=== PATIENT | female | born 1995 | race Hispanic/Latino ===

== ENCOUNTER 2017-06-06 08:50 | Outpatient (CLI) | payer OTHER | END 2017-06-06 08:51 | disposition home or self-care (01) | LOC: BICULT 08:50 | PROVIDERS: ATTEND Student in an Organized Health Care Education/Training Program | DX: N63.10 Unspecified lump in the right breast, unspecified quadrant (principal) ==

== ENCOUNTER 2017-12-08 07:57 | Outpatient (CLI) | payer OTHER | END 2017-12-08 07:58 | disposition home or self-care (01) | LOC: BICULT 07:57 | PROVIDERS: ATTEND Student in an Organized Health Care Education/Training Program | DX: N63.10 Unspecified lump in the right breast, unspecified quadrant (principal) ==

== ENCOUNTER 2017-12-19 00:10 | Emergency (ER) | payer OTHER ==
[2017-12-19 00:38] LABS: #Eosinphils 0.1 thou/uL (0.0-0.7); #Lymphocytes 0.6 thou/uL (1.20-3.40); #Monocytes 0.5 thou/uL (0.11-0.59); %Basophils 0.4 % (0.0-1.0); %Eosinophils 1.1 % (0.0-10.0); %Lymphocytes 5.6 % (21.0-51.0); %Monocytes 4.5 % (0.0-10.0); %Neutrophils 88.5 % (42.0-75.0); Hemoglobin 14.2 g/dL (12.0-16.0); Mean Corpuscular HGB CONC 34.9 g/dL (32.0-36.0); Mean Corpuscular Hemoglobin 29.8 pg (27.0-31.0); Mean Corpuscular Volume 85.4 fL (78.0-98.0); Mean Platelet Volume 6.8 fL (7.4-10.4); Platelet Count 261 thou/uL (130-400); RBC Distribution Width 11.4 % (11.5-14.5); Red Blood Cell (RBC) Count 4.76 mill/uL (4.20-5.40); White Blood Cell (WBC) Count 10.1 thou/uL (4.8-10.8)
[2017-12-19 00:40] LABS: Bilirubin Negative (Negative); Blood, Urine Small (Negative); Clarity CLEAR (Clear); Glucose, Urine (Dipstick) Negative (Negative); Leukocyte Negative (Negative); Nitrite Negative (Negative); Protein, Urine (Dipstick) Negative (Neg-Trace); Specific Gravity, Urine 1.026 (1.002-1.036); Urobilinogen 0.2 mg/dL (0.2-1.0); pH, Urine 5.5 (5.0-9.0)
[2017-12-19 00:41] LABS: Pregnancy Test - Urine (BHCG) Negative (Negative); Pregu Control Background? CLEAR/WHITE (CLR/WHITE); Pregu Control Bar Appear? YES (CONTROL BAR); Specific Gravity 1.026 (1.002-1.036)
[2017-12-19 00:42] LABS: Bacteria/HPF None Seen HPF (None Seen); Hyaline Casts/LPF 0-3 HYALINE CAST LPF (0-3 Hyaline); Pathc Cast-AUWi Flag 0.87 (0-2.49); Squamous Epithelial 0-3 HPF (0-3); WBC/HPF 0-3 HPF (0-3)
[2017-12-19 00:55] LABS: ALT (SGPT) 16 U/L (8-55); AST (SGOT) 18 U/L (5-34); Albumin 4.5 g/dL (3.5-5.0); Alkaline Phosphatase 71 U/L (40-150); Anion Gap 12 mmol/L (10-20); BUN (Urea Nitrogen) 10 mg/dL (7.0-18.7); Bilirubin, Total 0.6 mg/dL (0.2-1.2); Calc. Creatinine Clearance 0 mL/min (70-130); Calcium 9.4 mg/dL (7.8-10.44); Carbon Dioxide 25 mmol/L (22-29); Chloride 105 mmol/L (98-107); Estimated GFR-MDRD Greater than 90; Globulin 3.2 g/dL (2.4-3.5); Glucose 115 mg/dL (70-105); Lipase 19 U/L (8-78); Potassium 4.1 mmol/L (3.5-5.1); Protein, Total 7.7 g/dL (6.0-8.3); Sodium 138 mmol/L (136-145)
[2017-12-19] MEDS ORDERED: Ondansetron ODT 4 MG TAB ONE (01:00)
[2017-12-19] MEDS ORDERED: Ketorolac Tromethamine 30 MG/ML VIAL ONE (02:47)
[2017-12-19] MEDS ORDERED: Famotidine/PF 20 mg/2ml Vial ONE (02:47)
--- NOTE | 2017-12-20 13:07 | EKG ---
Test Reason : Blood Pressure : / mmHG Vent. Rate : 110 BPM Atrial Rate : 110 BPM P-R Int : 114 ms QRS Dur : 100 ms QT Int : 346 ms P-R-T Axes : 053 086 043 degrees QTc Int : 468 ms Sinus tachycardia Incomplete right bundle branch block Cannot rule out Anterior infarct , age undetermined Abnormal ECG Confirmed by FLOR OWENS DO ([id number]), assistant film editor GANESH LEDESMA ([id number]) on 12/20/2017 1:07:19 PM Referred By: Confirmed By:FLOR OWENS DO
== END 2017-12-19 04:57 | disposition home or self-care (01) ==
LOC: ERS 00:10
DX: R10.13 Epigastric pain (principal); F41.9 Anxiety disorder, unspecified
CPT/HCPCS: 36415; 80053; 81003; 81015; 81025; 83690; 85025; 93005; 96361; 96374; 96375; J1885; Q0162; S0028

== ENCOUNTER 2018-05-18 09:49 | Day surgery (SDC) | payer OTHER ==
[2018-05-18] MEDS ORDERED: Iopamidol 370 76% 100 ML VIAL ONE (10:09)
[2018-05-18 10:29] LABS: #Basophils 0.1 thou/uL (0.0-0.2); #Eosinphils 0.2 thou/uL (0.0-0.7); #Lymphocytes 1.2 thou/uL (1.20-3.40); #Monocytes 0.8 thou/uL (0.11-0.59); #Neutrophils 8.4 thou/uL (1.40-6.50); %Basophils 0.8 % (0.0-1.0); %Eosinophils 1.5 % (0.0-10.0); %Lymphocytes 11.2 % (21.0-51.0); %Monocytes 7.5 % (0.0-10.0); %Neutrophils 78.9 % (42.0-75.0); Hemoglobin 13.8 g/dL (12.0-16.0); Mean Corpuscular HGB CONC 32.3 g/dL (32.0-36.0); Mean Corpuscular Hemoglobin 27.7 pg (27.0-31.0); Mean Corpuscular Volume 85.6 fL (78.0-98.0); Mean Platelet Volume 8.2 fL (7.4-10.4); Platelet Count 271 thou/uL (130-400); RBC Distribution Width 11.7 % (11.5-14.5); Red Blood Cell (RBC) Count 4.97 mill/uL (4.20-5.40); White Blood Cell (WBC) Count 10.7 thou/uL (4.8-10.8)
[2018-05-18 10:32] LABS: BHCG - Serum Negative (NEGATIVE); Pregs Control Background? CLEAR/WHITE (CLR/WHITE); Pregs Control Bar Appear? YES (CONTROL BAR)
[2018-05-18 10:39] LABS: ALT (SGPT) 30 U/L (8-55); AST (SGOT) 28 U/L (5-34); Albumin 4.1 g/dL (3.5-5.0); Alkaline Phosphatase 75 U/L (40-150); Anion Gap 13 mmol/L (10-20); BUN (Urea Nitrogen) 11 mg/dL (7.0-18.7); Bilirubin, Total 0.4 mg/dL (0.2-1.2); Calc. Creatinine Clearance 0 mL/min (70-130); Calcium 9.1 mg/dL (7.8-10.44); Carbon Dioxide 25 mmol/L (22-29); Chloride 106 mmol/L (98-107); Estimated GFR-MDRD Greater than 90; Globulin 3.2 g/dL (2.4-3.5); Glucose 103 mg/dL (70-105); Lipase 16 U/L (8-78); Potassium 3.8 mmol/L (3.5-5.1); Protein, Total 7.3 g/dL (6.0-8.3); Sodium 140 mmol/L (136-145)
[2018-05-18] MEDS ORDERED: Ondansetron PF 4 MG/2 ML Vial ONE ×2 (11:01→11:36)
[2018-05-18] MEDS ORDERED: Morphine 4 MG/ML Carpuject ONE ×2 (11:01→13:04)
[2018-05-18 11:06] LABS: Bilirubin Negative (Negative); Blood, Urine Negative (Negative); Clarity Slightly Cloudy (Clear); Glucose, Urine (Dipstick) Negative (Negative); Leukocyte Negative (Negative); Nitrite Negative (Negative); Protein, Urine (Dipstick) Negative (Neg-Trace); Urobilinogen 0.2 mg/dL (0.2-1.0)
[2018-05-18] MEDS ORDERED: Ketorolac Tromethamine 30 MG/ML VIAL ONE (11:36)
[2018-05-18] MEDS ORDERED: Rocuronium Bromide 10 MG/ML (10ML VIAL) ONE (11:36)
[2018-05-18] MEDS ORDERED: Dexamethasone 20 MG/5 ML VIAL ONE (11:36)
[2018-05-18] MEDS ORDERED: PROPOFOL 200 MG/20 ML VIAL ONE (11:36)
[2018-05-18] MEDS ORDERED: Succinylcholine Chloride 20 MG/ML 10 ml SYRINGE FS ONE (11:36)
[2018-05-18] MEDS ORDERED: Glycopyrrolate 0.2 MG/ML 5 ML SYRINGE ONE (11:36)
[2018-05-18] MEDS ORDERED: Piperacillin/Tazobactam 4.5 GM VIAL ONE (13:59)
--- NOTE | 2018-05-18 14:11 | CT ---
CT ABDOMEN WITH CONTRAST CT PELVIS WITH CONTRAST: DATE: 05/18/2018 TIME: 1:00 p.m. HISTORY: A 22-year-old female with periumbilical and right lower quadrant abdominal pain. Dr. Mae notified Dr. Inocente Walters of the [facility] Emergency Department about the appendicitis at 1:47 p.m. on 05/18/2018. COMPARISON: 10/29/2011 TECHNIQUE: IV injection of iodinated contrast media: Isovue-370 Oral contrast media: Administered FINDINGS: There is a new finding of mural thickening and mural enhancement involving the appendix, with a fluid -filled lumen and periappendiceal fat stranding, representing mild edema. No focal periappendiceal o rganized fluid collection is visualized. There is a small amount of free fluid in the cul-de-sac, in a posterior, dependent portion of the pel sharonda cavity, which is probably physiologic in a female patient of menstruating age. Previous CT showe d a 2.2 cm left ovarian cyst, which is no longer present on the current study. The previously demons trated left-sided pyelonephritis is not present currently. Currently, the bilateral kidneys, abdomin al aorta, pancreas, liver, spleen, and urinary bladder are normal. No small bowel dilation. No sign s of colonic diverticulitis. IMPRESSION: Positive for acute appendicitis. CODE MIRZA JN R POS: [facility]
[2018-05-18] MEDS ORDERED: Piperacillin/Tazobactam 4.5 GM in Sodium Chloride 0.9% 100 ML IVPB SCH (14:15)
[2018-05-18] MEDS ORDERED: Fentanyl 100 MCG/2 ML VIAL ONE ×2 (17:46→18:14)
[2018-05-18] MEDS ORDERED: Ertapenem 1 GM in Sodium Chloride 0.9% 100 ML IVPB SCH (18:00)
[2018-05-18] MEDS ORDERED: Bupivacaine HCl 0.25%/Epi 0.0005/PF 10 ML VIAL FS ONE ×2 (18:05→18:06)
[2018-05-18] MEDS ORDERED: Promethazine HCl 25 MG/ML VIAL ONE (19:12)
[2018-05-18] MEDS ORDERED: Meperidine HCl/PF 25 MG/ML VIAL ONE (20:06)
[2018-05-18] MEDS ORDERED: HYDROcodone/Acetaminophen 5/325 mg Tablet ONE (21:45)
--- NOTE | 2018-05-19 01:25 | HP ---
CHIEF COMPLAINT: Abdominal pain. HISTORY OF PRESENT ILLNESS: Ms. Eddy is a 22-year-old woman who had onset of right lower quadrant abdominal pain last night around 10 or 11. She had some nausea and vomiting and thought it would get better, but it did not, so she came into the emergency room today and was diagnosed with appendicitis. She was transferred to [place] for further care. She denies any fevers, chills, or diarrhea. She has not had much of an appetite. The pain is made better by lying on her left side and is made worse by any sort of movement. PAST MEDICAL HISTORY: Pyelonephritis on the left. PAST SURGICAL HISTORY: None. ALLERGIES: SHE HAS AN ALLERGY TO SULFA, WHICH CAUSES HIVES. SHE HAD A REACTION TO AN ANTIBIOTIC OF SOME TYPE, WHICH CAUSED SOME SWELLING OF HER TONGUE AND LIPS, BUT SHE DOES NOT KNOW WHICH ANTIBIOTIC IT WAS AND SHE WAS ON 3 DIFFERENT ANTIBIOTICS AT THAT TIME FOR HER PYELONEPHRITIS. FAMILY HISTORY: Noncontributory. SOCIAL HISTORY: She does not smoke, drink, or use illicit drugs. 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 PHYSICAL EXAMINATION: VITAL SIGNS: The patient is afebrile with normal vital signs. GENERAL: Reveals a healthy-appearing young woman, in no acute distress. NECK: Supple without lymphadenopathy or thyroid nodules. HEART: Regular in its rate and rhythm without murmurs, rubs, or gallops. LUNGS: Clear to auscultation bilaterally. ABDOMEN: Soft and nondistended. She has tenderness to palpation in the right lower quadrant and referred pain to the right lower quadrant with palpation of the left lower quadrant. No palpable masses or hernias. EXTREMITIES: Warm and well perfused without edema. NEUROLOGIC: No focal deficits. PSYCHIATRIC: Alert, oriented, and appropriate. IMAGING DATA: CT images are reviewed and I agree with the written report. The patient has a dilated appendix consistent with acute appendicitis. No evidence of perforation however. LABORATORY DATA: White count is high normal at 10.7 with a left shift. Electrolytes and LFTs are unremarkable. Serum is negative and UA is clear. ASSESSMENT: Acute appendicitis. Recommended laparoscopic appendectomy for management. Benefits, risks, and alternatives were discussed. Inherent risks of surgery include, but are not limited to, bleeding, infection, risks of anesthesia, damage to nearby structures including bowel, blood vessels, and bladder, need for open surgery, and need for other procedures. The patient and her mother understand, accepted these risks and wished to proceed. All of their questions were answered. She received Zosyn in the emergency room. If there is no evidence of perforation, she will likely be able to be discharged home postoperatively. Job ID: [id number]
--- NOTE | 2018-05-21 13:11 | OP ---
DATE OF PROCEDURE: 05/18/2018 PROCEDURE: Laparoscopic appendectomy. PREOPERATIVE DIAGNOSIS: Appendicitis. POSTOPERATIVE DIAGNOSIS: Appendicitis. 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 HISTORY: Ms. Eddy is a 22-year-old woman who presented to the emergency room with signs and symptoms consistent with appendicitis. This was confirmed by CT. Recommendation was made to proceed with laparoscopic appendectomy. FINDINGS: Acute appendicitis without evidence of perforation. DESCRIPTION OF PROCEDURE: After informed consent was obtained and appropriate antibiotics continued, the patient was taken to the operating room and placed in the supine position and general endotracheal anesthesia was administered. The bladder was decompressed with a Mata catheter and the abdomen was prepped and draped in the standard sterile fashion. Local anesthesia was infused to the skin and subcutaneous tissues superior to the umbilicus. A transverse skin incision was made and a Veress needle placed into the abdominal cavity and carbon dioxide gas insufflated without difficulty. Opening pressure was less than 5. Carbon dioxide gas was insufflated to an intra-abdominal pressure 15 and the patient tolerated this well. The Veress needle was withdrawn and a [place] port advanced under direct laparoscopic vision into the abdominal cavity. Two additional ports were placed in the suprapubic and left lateral abdomen under direct laparoscopic vision after local anesthesia was infused at these sites. The appendix was identified and appeared inflamed but not perforated. The appendix was grasped by the mesoappendix and elevated. The mesoappendix was then sequentially ligated and divided down to the base of the appendix, which was normal in appearance and was clearly seen to be at the confluence of the tenia. Two Endoloops were placed around the base of the appendix and the appendix was divided between these Endoloops, placed into an EndoCatch bag and drawn out through the suprapubic incision. The suprapubic trocar was then replaced and the operative site was easily irrigated to clear. The suprapubic trocar was removed and the fascia closed under direct laparoscopic vision with a 0 Vicryl suture on a GraNee needle with excellent technical result. The left lateral trocar was then removed and hemostasis verified. Carbon dioxide gas was desufflated through the umbilical trocar which was then removed. The skin incisions were irrigated and additional local anesthesia infused at each site. The skin was closed with 4-0 subcuticular Monocryl sutures and Dermabond dressings were placed. The patient was extubated and taken to the recovery room in good condition. Estimated blood loss was minimal. There were no complications. SPECIMEN: Appendix. Job ID: [id number]
== END 2018-05-18 22:14 | disposition home or self-care (01) ==
LOC: SDC 09:49 → SCSER 14:29 → ERS 15:28 → SDC 22:14
PROVIDERS: ATTEND Surgery
PROC: 0DTJ4ZZ Resection of Appendix, Percutaneous Endoscopic Approach (ICD-10-PCS; principal; 2018-05-18)
DX: K35.80 Unspecified acute appendicitis (principal); Z88.2 Allergy status to sulfonamides; Z88.1 Allergy status to other antibiotic agents
CPT/HCPCS: 74177; 80053; 81003; 83690; 84703; 85025; 88304; J1100; J1335; J1885; J2175; J2270; J2405; J2543; J2550; J2704; J3010; J7050; Q9967

== ENCOUNTER 2018-06-27 23:34 | Emergency (ER) | payer OTHER ==
[2018-06-27] MEDS ORDERED: Ibuprofen 800 MG TAB ONE (23:51)
[2018-06-28 00:17] LABS: #Lymphocytes 0.4 thou/uL (1.20-3.40); #Monocytes 0.5 thou/uL (0.11-0.59); #Neutrophils 5.6 thou/uL (1.40-6.50); %Basophils 0.5 % (0.0-1.0); %Eosinophils 0.7 % (0.0-10.0); %Lymphocytes 6.2 % (21.0-51.0); %Monocytes 7.7 % (0.0-10.0); %Neutrophils 84.9 % (42.0-75.0); Hemoglobin 13.3 g/dL (12.0-16.0); Mean Corpuscular HGB CONC 33.2 g/dL (32.0-36.0); Mean Corpuscular Hemoglobin 29.1 pg (27.0-31.0); Mean Corpuscular Volume 87.7 fL (78.0-98.0); Mean Platelet Volume 7.4 fL (7.4-10.4); Platelet Count 211 thou/uL (130-400); RBC Distribution Width 11.1 % (11.5-14.5); Red Blood Cell (RBC) Count 4.58 mill/uL (4.20-5.40); White Blood Cell (WBC) Count 6.6 thou/uL (4.8-10.8)
[2018-06-28 00:37] LABS: ALT (SGPT) 14 U/L (8-55); AST (SGOT) 17 U/L (5-34); Albumin 4.6 g/dL (3.5-5.0); Alkaline Phosphatase 85 U/L (40-150); Anion Gap 15 mmol/L (10-20); BUN (Urea Nitrogen) 11 mg/dL (7.0-18.7); Bilirubin, Total 0.7 mg/dL (0.2-1.2); Calc. Creatinine Clearance 0 mL/min (70-130); Calcium 9.5 mg/dL (7.8-10.44); Carbon Dioxide 22 mmol/L (22-29); Chloride 102 mmol/L (98-107); Estimated GFR-MDRD 86; Glucose 96 mg/dL (70-105); Potassium 3.8 mmol/L (3.5-5.1); Protein, Total 7.6 g/dL (6.0-8.3); Sodium 135 mmol/L (136-145)
[2018-06-28 01:12] LABS: Bilirubin Negative (Negative); Blood, Urine Negative (Negative); Clarity CLEAR (Clear); Glucose, Urine (Dipstick) Negative (Negative); Leukocyte Negative (Negative); Nitrite Negative (Negative); Protein, Urine (Dipstick) Trace mg/dL (Neg-Trace); Specific Gravity, Urine 1.027 (1.002-1.036); Urobilinogen 0.2 mg/dL (0.2-1.0)
[2018-06-28] MEDS ORDERED: Acetaminophen 500 MG TAB ONE (01:20)
--- NOTE | 2018-06-28 08:12 | RAD ---
AP VIEW CHEST: HISTORY: Cough. FINDINGS: AP view chest is obtained on 06/27/2018. AP view chest demonstrates EKG leads seen over the chest. The lungs are well aerated. No evidence o f active intrathoracic disease seen. No evidence of effusions, pneumonia, or pneumothorax seen. IMPRESSION: Unremarkable AP view chest. POS: [facility]
--- NOTE | 2018-06-28 08:46 | CT ---
PRELIMINARY REPORT/[facility]/EMERGENTY AFTER-HOURS PROCEDURE CT Angiography Chest With Contrast EXAM DATE/TIME: 06/28/2018 12:53 AM CLINICAL HISTORY: 22 years old, female; Dyspnea; fever, nausea, cough, shortness of breath. Pt reports was sitting on c ouch and started feeling nauseated,a heavy sensation on chest. temp was 100.6. dry cough x 2 days. De nies dysuria, abdominal pain, chest pain, and wheezing. Reports HX anxiety. 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 TECHNIQUE: Axial computed tomographic angiography images of the chest with intravenous contrast using CT angiogr aphy protocol. MIP reconstructed images were created and reviewed. COMPARISON: No relevant prior studies available. FINDINGS: Pulmonary arteries: No evidence of pulmonary embolism. Aorta: Normal caliber thoracic aorta without dissection or aneurysm. Lungs: No alveolar infiltrate. Pleural space: No pleural fluid collection. No pneumothorax. Heart: No RV dysfunction. No pericardial effusion. Lymph nodes: No pathologically enlarged lymph nodes. Bones/joints: Unremarkable. No acute fracture. Soft tissues: Unremarkable. IMPRESSION: 1. No evidence of pulmonary embolism. 2. No alveolar infiltrate. Thank you for allowing us to participate in the care of your patient. Dictated and Authenticated by: Tae Mathias MD 06/28/2018 1:31 AM Central Time ([place] & [place]) FINAL REPORT CTA CHEST: HISTORY: This 22-year-old presents with a history of shortness of breath. FINDINGS: Contrast-enhanced CTA chest is performed. Two-D and 3D reconstructed images performed on an [facility] 3D work station. The patient also has a history of dyspnea, fever, cough, and shortness of breat h. CTA chest is performed. Final report. Preliminary exam was performed by [facility]. I concur with the dictation from [facility]. No significant evidence of pulmonary parenchymal lesion seen. No evidence of pleural or pericardial effusion. No evidence of filling defect seen in the pulmonary arteries to suggest pulmonary emboli. IMPRESSION: Unremarkable CTA chest. POS: [facility]
[2018-06-28] MEDS ORDERED: ISOVUE-370 76%-LOCM 1 ML ONE (09:44)
== END 2018-06-28 02:02 | disposition home or self-care (01) ==
LOC: ERS 23:34
DX: J11.1 Influenza due to unidentified influenza virus with other respiratory manifestations (principal); F41.9 Anxiety disorder, unspecified
CPT/HCPCS: 71045; 71275; 80053; 81003; 84484; 85025; 85379; 87804; 93005; 96360; Q9966

== ENCOUNTER 2019-01-18 12:49 | Emergency (ER) | payer OTHER ==
[2019-01-18 14:33] LABS: HIV (1/2) Antibody/Antigen Non-Reactive (NonReactive); Hep C IgG Ab Non-Reactive (NonReactive); Hep C Index 0.13 S/CO (0-0.79)
[2019-01-18 14:35] LABS: HBSAB Concentration 676.38 mIU/mL; Hep B Surf AB Reactive (NonReactive)
== END 2019-01-18 13:47 | disposition home or self-care (01) ==
LOC: ERS 12:49
DX: Z20.2 Contact with and (suspected) exposure to infections with a predominantly sexual mode of transmission (principal); F41.9 Anxiety disorder, unspecified
CPT/HCPCS: 36415; 86706; 86803; 87389; 99283

== ENCOUNTER 2019-03-04 04:15 | Emergency (ER) | payer OTHER ==
[2019-03-04] MEDS ORDERED: Dexamethasone 10 MG/ML VIAL ONE (04:33)
== END 2019-03-04 05:04 | disposition home or self-care (01) ==
LOC: SCSER 04:15
DX: J02.9 Acute pharyngitis, unspecified (principal); F41.9 Anxiety disorder, unspecified
CPT/HCPCS: 87081; 87430; 96372; 99283; J1100

== ENCOUNTER 2021-09-29 23:53 | Emergency (ER) | payer OTHER, SELFPAY ==
[2021-09-30] MEDS ORDERED: Lidocaine Viscous Sol 2% 15 ml UD Cup ONE (00:21)
[2021-09-30] MEDS ORDERED: Mag-Al 1200 mg/1200 mg/30 ML UDCUP ONE (00:21)
[2021-09-30 00:31] LABS: #Eosinphils 0.1 thou/uL (0.0-0.7); #Lymphocytes 0.5 thou/uL (1.20-3.40); #Monocytes 0.4 thou/uL (0.11-0.59); #Neutrophils 8.4 thou/uL (1.40-6.50); %Basophils 0.4 % (0.0-1.0); %Eosinophils 0.6 % (0.0-10.0); %Lymphocytes 5.1 % (21.0-51.0); %Monocytes 4.6 % (0.0-10.0); %Neutrophils 89.4 % (42.0-75.0); Hemoglobin 14.9 g/dL (12.0-16.0); Mean Corpuscular HGB CONC 34.1 g/dL (32.0-36.0); Mean Corpuscular Hemoglobin 29.7 pg (27.0-31.0); Mean Corpuscular Volume 87.3 fL (78.0-98.0); Platelet Count 238 thou/uL (130-400); RBC Distribution Width 11.3 % (11.5-14.5); Red Blood Cell (RBC) Count 5.02 mill/uL (4.20-5.40); White Blood Cell (WBC) Count 9.4 thou/uL (4.8-10.8)
[2021-09-30 00:56] LABS: ALT (SGPT) 17 U/L (8-55); AST (SGOT) 13 U/L (5-34); Albumin 4.5 g/dL (3.5-5.0); Alkaline Phosphatase 85 U/L (40-110); Anion Gap 15 mmol/L (10-20); BUN (Urea Nitrogen) 15 mg/dL (7.0-18.7); Bilirubin, Total 0.8 mg/dL (0.2-1.2); Calc. Creatinine Clearance 0 mL/min (70-130); Calcium 9.4 mg/dL (7.8-10.44); Carbon Dioxide 24 mmol/L (22-29); Chloride 105 mmol/L (98-107); Globulin 3.2 g/dL (2.4-3.5); Glucose 105 mg/dL (70-105); Lipase 23 U/L (8-78); Potassium 3.7 mmol/L (3.5-5.1); Protein, Total 7.7 g/dL (6.0-8.3); Sodium 140 mmol/L (136-145)
[2021-09-30] MEDS ORDERED: Ondansetron PF 4 MG/2 ML Vial ONE (01:00)
[2021-09-30] MEDS ORDERED: Ketorolac Tromethamine 30 MG/ML VIAL ONE (01:00)
[2021-09-30] MEDS ORDERED: Meclizine HCl 25 MG TAB ONE (01:55)
== END 2021-09-30 03:04 | disposition home or self-care (01) ==
LOC: ERS 23:53
DX: K20.90 Esophagitis, unspecified without bleeding (principal); R42 Dizziness and giddiness; R11.2 Nausea with vomiting, unspecified
CPT/HCPCS: 71045; 80053; 83690; 84484; 85025; 93005; 96361; 96374; 96375; J1885; J2405

== ENCOUNTER 2024-04-22 13:18 | Outpatient (CLI) | payer BC | END 2024-04-22 13:19 | disposition home or self-care (01) | LOC: BICRAD 13:18 | PROVIDERS: ATTEND Family Medicine | DX: R05.1 Acute cough (principal); R50.9 Fever, unspecified; R06.02 Shortness of breath; J18.9 Pneumonia, unspecified organism | CPT/HCPCS: 71046 ==